=== PATIENT | male | born 1995 | race Caucasian/White ===

== ENCOUNTER 2020-12-15 19:54 | Observation (INO) ==
[2020-12-15] MEDS ORDERED: Acetaminophen 325 MG TABLET PO ONE (20:34)
[2020-12-15 20:53] LABS: Basophils % 0.4 %; Eosinophils # 0.1 K/mcL (0.0-0.6); Eosinophils % 0.8 %; Hematocrit 44.4 % (37.5-50.1); Hemoglobin 15.2 g/dL (12.9-16.9); Immature Granulocytes % 0.4 % (0-4); Lymphocytes % 19.7 %; Mean Corpuscular HGB Conc 34.2 g/dL (31.6-35.5); Mean Corpuscular Hemoglobin 28.6 pg (28.0-33.3); Mean Corpuscular Volume 83.5 fL (83.0-100.0); Monocytes # 0.8 K/mcL (0.0-1.3); Monocytes % 8.1 %; Neutrophils # 7.3 K/mcL (1.6-8.9); Platelet Count 293 K/mcL (140-400); Red Blood Count 5.32 M/mcL (4.19-5.50); Red Cell Distribution Width 12.1 % (11.5-14.5); Segmented Neutrophils % 70.6 %; White Blood Count 10.3 K/mcL (4.3-11.1)
[2020-12-15] MEDS ORDERED: Piperacillin/Tazobactam 3.375 GM in Water for inj. (sterile) 20 ML IVP ONE (20:57)
[2020-12-15] MEDS: 0.9 % Sodium Chloride 1,000 ML IVC SCH ×2 (21:14→23:40)
[2020-12-15 22:00] LABS: BUN/Creatinine Ratio 11 (6-26); Blood Urea Nitrogen 12 mg/dL (6-20); Calcium 9.5 mg/dL (8.6-10.3); Carbon Dioxide 26 mEq/L (23-29); Chloride 101 mEq/L (98-107); Glucose 119 mg/dL (70-105); Osmolality,Calculated 283 (280-300); Potassium 3.7 mEq/L (3.5-5.1); Sodium 136 mEq/L (136-145); eGFR For African Americans > 60 (> 60); eGFR For Non-African Americans > 60 (> 60)
[2020-12-16] MEDS: 0.9 % Sodium Chloride 1,000 ML IVC SCH ×2 (04:50→05:50)
[2020-12-16] MEDS ORDERED: Piperacillin/Tazobactam 3.375 GM in 0.9 % Sodium Chloride Mini Bag 100 ML IVPB SCH ×2 (06:00→14:00)
[2020-12-16] MEDS ORDERED: *HR* HYDROmorphone (PF) 1 MG/ML SYRINGE IVP PRN (09:13)
[2020-12-16] MEDS ORDERED: *HR* OxyCODONE Immed Rel 5 MG TABLET PO PRN (09:13)
[2020-12-16] MEDS ORDERED: Lidocaine HCL 4 ML Topical Solution (Laryng-O-Jet Kit Sterile Pak) TP ONE (09:39)
[2020-12-16] MEDS ORDERED: *HR* FentaNYL (PF) 100 MCG/2 ML VIAL ONE (09:39)
[2020-12-16] MEDS ORDERED: *HR* Rocuronium Bromide 50 MG/5 ML VIAL ONE (09:39)
[2020-12-16] MEDS ORDERED: *HR* Midazolam HCl 2 MG/2 ML VIAL ONE (09:39)
[2020-12-16] MEDS ORDERED: *HR* Propofol 200 MG/20 ML VIAL IVP ONE (09:39)
[2020-12-16] MEDS ORDERED: Ondansetron 4 MG/2 ML VIAL ONE (09:39)
[2020-12-16] MEDS ORDERED: Lidocaine -MPF 2% 2 ML VIAL ONE (09:39)
[2020-12-16] MEDS ORDERED: Dexamethasone 4 MG/ML VIAL ONE (09:39)
[2020-12-16] MEDS ORDERED: *HR* Succinylcholine 200 MG/10 ML VIAL IVP ONE (09:39)
[2020-12-16] MEDS ORDERED: *HR* HYDROMORPHONE 2 MG/ML VIAL ONE (10:34)
[2020-12-16] MEDS ORDERED: Ketorolac 30 MG/ML VIAL ONE (10:39)
[2020-12-16] MEDS ORDERED: Acetaminophen IV 1,000 MG/100 ML BAG IVPB ONE ×3 (10:44→11:52)
[2020-12-16] MEDS ORDERED: *HR* OxyCODONE/APAP 5/325 TABLET PO PRN ×2 (11:01→11:52)
[2020-12-16] MEDS ORDERED: 0.9 % Sodium Chloride 1,000 ML IVC SCH (11:52)
[2020-12-16 17:14] VITALS: BP 145/79
[2020-12-16] MEDS ORDERED: Ondansetron 4 MG/2 ML VIAL IVP PRN ×2 (22:55)
== END 2020-12-16 18:17 | disposition home or self-care (01) ==
LOC: 3ANU 19:54 → EMEROOARM 19:54 → 3ANU 22:01
PROVIDERS: ADMIT Surgery; ATTEND Surgery